=== PATIENT | male | born 1945 | race Caucasian/White ===

== ENCOUNTER 2021-06-30 08:15 | Inpatient (IN) | payer MEDICARE ==
[2021-06-22 10:41] LABS: BASOPHILS # (AUTO) 0.1 X10'3 (0-0.2); EOSINOPHILS # (AUTO) 0.2 X10'3 (0-0.9); EOSINOPHILS % (AUTO) 4.4 % (0-6); LYMPHOCYTES # (AUTO) 1.5 X10'3 (1.1-4.8); LYMPHOCYTES % (AUTO) 28.7 % (21-51); MEAN CORPUSCULAR HEMOGLOBIN 30.4 PG (27.0-31.0); MEAN CORPUSCULAR HGB CONC 33.4 g/dL (33.0-36.5); MEAN CORPUSCULAR VOLUME 91.3 FL (78-98); MEAN PLATELET VOLUME 7.8 FL (7.4-10.4); MONOCYTES # (AUTO) 0.5 X10'3 (0-0.9); MONOCYTES % (AUTO) 9.6 % (2-12); NEUTROPHILS # (AUTO) 2.9 X10'3 (1.8-7.7); NEUTROPHILS % (AUTO) 56.3 % (42-75); PRE OP HEMATOCRIT 43.3 % (42.0-52.0); PRE OP HEMOGLOBIN 14.4 g/dL (14.0-17.9); PRE OP PLATELET COUNT 208 X10'3 (140-440); RED BLOOD COUNT 4.75 X10'6 (4.70-6.10); RED CELL DISTRIBUTION WIDTH 14.2 % (11.5-14.5)
[2021-06-22 10:54] LABS: PRE OP PROTIME 10.6 SECONDS (9.0-12.0)
[2021-06-22 10:56] LABS: ALBUMIN 3.8 G/DL (3.4-5.0); ALBUMIN/GLOBULIN RATIO 1.2 (1.1-1.5); ALKALINE PHOSPHATASE 68 IU/L (46-116); BLOOD UREA NITROGEN 16 MG/DL (7-18); BUN/CREATININE RATIO 13.9 (5.4-32.0); CALCIUM 8.8 MG/DL (8.5-10.1); CHLORIDE 107 MMOL/L (99-107); CREATININE 1.15 MG/DL (0.60-1.10); PRE OP ALT 25 U/L (30-65); PRE OP ANION GAP 5 (8-16); PRE OP AST 21 U/L (10-37); PRE OP BILIRUB, TOTAL 0.7 MG/DL (0.0-1.0); PRE OP GLUCOSE 90 MG/DL (70-104); PRE OP POTASSIUM 4.1 MMOL/L (3.4-5.1); PRE OP SODIUM 140 MMOL/L (135-145); TOTAL CARBON DIOXIDE 27.9 MMOL/L (24-32); eGFR 62 ML/MIN
[2021-06-30] VITALS (23 sets, daily range): BP systolic 89–130; BP diastolic 46–77
[~2021-06-30] VITALS: Ht 182.9 cm; Wt 97.7 kg
[~2021-06-30 08:15] MED LIST: ACET-1025 PO; DOCUMENT DATE & TIME OF BETA-BLOCKER PO ONE; DOXA4TAB5 PO; METO-395 PO; ceFAZolin inj. 2,000 MG in dextrose 5%-water 100 ML IV ONE; famotidine 20mg tablet PO ONE; ringers solution, lacted 1,000 ML IV SCH; tranexamic acid inj. 1,000 MG in 0.7% saline 100 ML PMX IV ONE; vancomycin 1,500 MG in NS 300ml IV soln IV ONE
--- NOTE | 2021-06-30 08:20 | NUR ---
CSM: PEDAL PULSES STRONG. SKIN WARM, CDI. PULSES MARKED. PATIENT STATES HE USED CREAM. DID NOT WATCH VIDEO BECAUSE HIS COMPUTER WAS BROKE, BUT HE READ THE BROCHURE. EDUCATED PATIENT ON INCENTIVE SPIROMETER USE. PATIENT VERBALIZED AN UNDERSTANDING OF EDUCATION. AT BEDSIDE WITH QUESTIONS ABOUT HIS EDUCATION. ANSWERED ALL HER QUESTIONS. SENT INCENTIVE SPIROMETER IN BAG TO RECOVERY
[2021-06-30] MEDS ORDERED: cloNIDine hcl/PF 100mcg/ml inj ONE (11:21)
[2021-06-30] MEDS ORDERED: ROPIVAcaine 0.5% (5mg/ml) 30ml vial ONE ×2 (11:21→13:57)
[2021-06-30] MEDS ORDERED: ketorolac trometh. 30mg/ml inj. ONE (11:21)
[2021-06-30] MEDS ORDERED: vancomycin 1,000mg inj ONE (11:21)
[2021-06-30] MEDS ORDERED: tetracaine 1% (10mg/ml) pres. free inj. ONE (11:42)
[2021-06-30] MEDS ORDERED: fentaNYL/PF 50MCG/1 ML 2ML syringe ONE (11:46)
[2021-06-30] MEDS ORDERED: MIDAZolam 1mg/ml 10ml vial ONE (11:46)
[2021-06-30] MEDS ORDERED: propofol inj 20 ML IV ONE ×2 (12:06)
[2021-06-30] MEDS ORDERED: meperidine/PF 25mg/ml syringe IV PRN ×3 (12:50)
[2021-06-30] MEDS ORDERED: morphine 2 MG/ML inj. syringe IV PRN (12:50)
[2021-06-30] MEDS ORDERED: proCHLORperazine 10 MG/2 ml inj IV PRN (12:50)
[2021-06-30] MEDS ORDERED: ondansetron/PF 4mg/2ml inj IV PRN ×2 (12:50→14:55)
[2021-06-30] MEDS ORDERED: ringers solution, lacted 1,000 ML IV SCH (12:50)
[2021-06-30] MEDS ORDERED: morphine 4 MG/ML inj SYRINge IV PRN (12:50)
--- NOTE | 2021-06-30 14:48 | NUR ---
Received patient from OR, report received from Dr. Renae. Patient waking up, denies pain, vss, neurovascular checks intacton left dorsalis pedis 2+, t10 sensation secondary to anesthesia, gonzales at 40's and MD aware and continue to assess. Addendum: 06/30/21 at 1452 by Earnest Oneill RN Amended: Links added.
[2021-06-30] MEDS ORDERED: acetaminophen 325mg tablet PO PRN (14:55)
[2021-06-30] MEDS ORDERED: diphenhydrAMINE 25mg capsule PO PRN ×2 (14:55)
[2021-06-30] MEDS ORDERED: magnesium hydroxide 30ml (MOM) UD suspension PO PRN (14:55)
[2021-06-30] MEDS ORDERED: naloxone 0.4 mg/ml inj IV PRN (14:55)
[2021-06-30] MEDS ORDERED: bisacodyl 10mg suppository rectal RC PRN (14:55)
[2021-06-30] MEDS ORDERED: HYDROmorphone inj. 0.5 MG/0.5 ML DISP.SYRIN IV PRN (14:55)
[2021-06-30] MEDS ORDERED: glycopyrrolate 0.2mg/ml inj ONE (15:31)
--- NOTE | 2021-06-30 15:32 | NUR ---
Dr. Renae at bedside and administered Glycopyrrolate 0.2 mg IV once Addendum: 06/30/21 at 1601 by Earnest Oneill RN Amended: Links added.
--- NOTE | 2021-06-30 16:46 | NUR ---
PATIENT HAS MET ALL CRITERIA FOR TRANSFER TO ORTHO FLOOR. VSS. DRESSINGS INTACT. BED LOW, CALL LIGHT PRESENT AND 2 RAILS UP. RN PRESENT TO ACCEPT CARE OF PATIENT AND REPORT HAS BEEN CALLED. ALL QUESTIONS ANSWERED TO ACCEPTING RN. Addendum: 06/30/21 at 1647 by Earnest Oneill RN Amended: Links added.
[2021-06-30] MEDS: ceFAZolin/D5W- 1GM premix 50 ML IV SCH (17:39)
--- NOTE | 2021-06-30 18:18 | NUR ---
Report given to BIRGIT Escobar and GEO Cruz
[2021-06-30] MEDS: HYDROcodone/acetaminophen 10/325mg tab PO PRN (19:01)
--- NOTE | 2021-06-30 19:04 | NUR ---
Patient in room ORTHO 4013. I have received report from BIRGIT Sarkar and had the opportunity to ask questions and assume patient care.
[2021-06-30] MEDS: potassium Cl 20mEq in NS 1,000 ML IV SCH (19:30)
[2021-06-30] MEDS ORDERED: vancomycin/NS 1 GM ADD-VANTAGE 250 ML IV SCH (20:00)
[2021-06-30] MEDS ORDERED: non-formulary drug (Doxazosin Mesylate 1 TAB) PO SCH (21:00)
[2021-06-30] MEDS ORDERED: sennosides 8.6mg tablet PO SCH (21:00)
[2021-06-30] MEDS: ketorolac tromethamine 15mg/ml inj. IV SCH (21:59)
[2021-07-01] VITALS: BP 90/47
[2021-07-01] MEDS: ceFAZolin/D5W- 1GM premix 50 ML IV SCH (00:14)
[2021-07-01 01:00] VITALS: BP 92/46
[2021-07-01] MEDS: ketorolac tromethamine 15mg/ml inj. IV SCH ×2 (02:00→07:51)
[2021-07-01] MEDS: HYDROcodone/acetaminophen 10/325mg tab PO PRN ×2 (03:19→09:07)
[2021-07-01 04:00] VITALS: BP 99/54
[2021-07-01] MEDS: potassium Cl 20mEq in NS 1,000 ML IV SCH (04:40)
--- NOTE | 2021-07-01 06:31 | NUR ---
Problems reprioritized. Patient report given, questions answered & plan of care reviewed with BIRGIT Sarkar.
[2021-07-01 06:39] LABS: BASOPHILS % (AUTO) 0.1 % (0-1); EOSINOPHILS % (AUTO) 0 % (0-6); HEMATOCRIT 32.8 % (42.0-52.0); HEMOGLOBIN 11.3 g/dl (14.0-17.9); LYMPHOCYTES # (AUTO) 0.7 X10'3 (1.1-4.8); LYMPHOCYTES % (AUTO) 7.9 % (21-51); MEAN CORPUSCULAR HEMOGLOBIN 31.4 PG (27.0-31.0); MEAN CORPUSCULAR HGB CONC 34.3 g/dL (33.0-36.5); MEAN CORPUSCULAR VOLUME 91.4 FL (78-98); MEAN PLATELET VOLUME 8.4 FL (7.4-10.4); MONOCYTES # (AUTO) 0.7 X10'3 (0-0.9); MONOCYTES % (AUTO) 7.7 % (2-12); NEUTROPHILS % (AUTO) 84.3 % (42-75); PLATELET COUNT 173 X10'3 (140-440); RED BLOOD COUNT 3.59 X10'6 (4.70-6.10); RED CELL DISTRIBUTION WIDTH 13.5 % (11.5-14.5); WHITE BLOOD COUNT 9.4 X10'3 (4.5-11.0)
--- NOTE | 2021-07-01 06:39 | NUR ---
Received report from Luz.
[2021-07-01 07:16] LABS: ANION GAP 8 (8-16); CHLORIDE 107 MMOL/L (99-107); POTASSIUM 4.4 MMOL/L (3.5-5.1); SODIUM 138 MMOL/L (135-145); TOTAL CARBON DIOXIDE 22.9 MMOL/L (24-32)
[2021-07-01] MEDS ORDERED: metoprolol succinate 25mg (24-HOUR) SR. Tablet PO SCH (08:00)
[2021-07-01] MEDS ORDERED: aspirin 325mg tablet PO SCH (08:30)
--- NOTE | 2021-07-01 09:39 | NUR ---
Paged dr. erickson for discharge orders and paged case management for shaila
[2021-07-01] MEDS ORDERED: ASPI-1265 PO (10:56)
--- NOTE | 2021-07-01 12:03 | NUR ---
Pt was discharge home with spouse in personal vehicle with walker. IV was removed from left forearm, cannula was intact. Discharge instruction was provided with verbalization of understanding.
--- NOTE | 2021-07-01 13:50 | NUR ---
Joint Surgery Consult: Pt s/p L knee surgery this admit. Pt discharged prior to RD visit. Written high protein ed w/ RD contact information mailed to pt home address provided in EMR. Addendum: 07/01/21 at [address] Amended: Links added.
== END 2021-07-01 11:50 | disposition home or self-care (01) | DRG 470 ==
LOC: PRE-OP 08:15 → UNDOADMIN 14:51 → ORTHO 4S 14:51
PROVIDERS: ADMIT Orthopaedic Surgery; ATTEND Orthopaedic Surgery
PROC: 0SRD0J9 Replacement of Left Knee Joint with Synthetic Substitute, Cemented, Open Approach (ICD-10-PCS; principal; 2021-06-30 11:44)
DX: M17.12 Unilateral primary osteoarthritis, left knee (principal)
CPT/HCPCS: 36415; 80051; 80053; 82948; 85025; 85610; 85730; 86885; 86900; 86901; 86920; 87081; 97110; 97161; 97530; A6455; A7000; A9272; C1713; C1758; C1776; G0378; J0690; J0735; J1170; J1885; J2250; J2704; J2795; J3010; J3370; J3480; J3490; J7040; J7060; J7120; U0003; U0005